=== PATIENT | female | born 1970 | race Caucasian/White ===

== ENCOUNTER 2023-05-15 18:39 | Emergency (ER) | payer OTHER, SELFPAY ==
[2023-05-15 18:40] VITALS: BP 155/91; PULSE 91; RESP 16; TEMP 36.3; BMI 36.8
[2023-05-15 18:43] VITALS: BP 155/91; PULSE 91; RESP 16; TEMP 36.3
[2023-05-15 19:18] VITALS: PULSE 69; RESP 17; O2SAT 98
--- NOTE | 2023-05-15 19:20 | RAD_ITS ---
STUDY: X-RAY - LEFT ELBOW REASON FOR EXAM: Female, 52 years old. fall TECHNIQUE: 3 view(s) of the elbow. COMPARISON: None. FINDINGS: Acute nondisplaced fracture of the radial neck. Normal radiocapitellar and ulnotrochlear articulations. The soft tissue structures are unremarkable. RAD/Elbow min 3 Views IMPRESSION: Acute nondisplaced radial neck fracture. Electronically Signed: Michel Rausch MD at 19:37 EST ,
--- OUTSIDE RECORDS SUMMARY | 2023-05-15 19:34 | XMS RPT_ITS | CCD ---
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 30 tablet 0 03/31/2022 04/08/2022 Discontinued Problems Active Problems Problem Classification Problem Date Documented Da te Episodic/Chronic Menopausal disorders (1 source) Menopausal flushing; Translations: [Menopausal and female climacteric states] Chronic Mood disorders (4 sources) Chronic depression; Translations: [Chronic depression] Onset: 07-07-2022 Chronic Other nutritional; endocrine; and metabolic disorders (1 source) Obesity; Translations: [Obesity, unspecified] Chronic Other nutritional; endocrine; and metabolic disorders (1 source) Obesity, unspecified; Translations: [Class 1 obesity without serious comorbidity with body mass index (BMI) of 34.0 to 34.9 in adult, unspecified obesity type] Onset: 07-07-2022 Chronic Other nutritional; endocrine; and metabolic disorders (1 source) Body mass index (BMI) 34.0-34.9, adult; Translations: [Class 1 obesity without serious comorbidity with body mass index (BMI) of 34.0 to 34.9 in adult, unspecified obesity type] Onset: 07-07-2022 Chronic Other screening for suspected conditions (not mental disorders or infectious disease) (3 sources) Breast finding ; Translations: [Inconclusive mammogram] Episodic Past or Other Problems Problem Classification Problem Date Documented Date Episodic/Chronic Allergic reactions (5 sources) Solar degeneration; Translations: [Other skin changes due to chronic exposure to nonionizing radiation] Onset: 12-19-2012 12-19-2012 Episodic Other and unspecified benign neoplasm (5 sources) Dermatofibroma of left lower limb; Translations: [Other benign neoplasm of skin of left lower limb, including hip] Onset: 12-19-2012 12-19-2012 Episodic Other and unspecified benign neoplasm (5 sources) Lipoma of shoulder; Translations: [Benign lipomatous neoplasm of skin and subcutaneous tissue of unspecified limb] Onset: 12-19-2012 12-19-2012 Episodic Other skin disorders (5 sources) Actinic keratosis; Translations: [Actinic keratosis] Onset: 12-19-2012 12-19-2012 Episodic Other skin disorders (5 sources) Solar lentigo; Translations: [Other melanin hyperpigmentation] Onset: 12-19-2012 12-19-2012 Episodic Other skin disorders (5 sources) Seborrheic keratosis; Translations: [Other seborrheic keratosis] Onset: 02-04-2013 02-04-2013 Episodic Viral infection (5 sources) Verruca vulgaris; Translations: [Viral wart, unspecified] Onset: 10-10-2012 10-10-2012 Episodic Results Test Name Value Interpretation Reference Range Facil ity Vital Signs Date Time Vital Sign Value Performing Clinician Warren valenzuela 07-07-2022 15:58-0500 Body weight 102.51 kg Sofya Cordero APRN.CNP Work Phone: [facility] 07-07-2022 15:58-0500 Diastolic blood pressure 84 mm[Hg] Sofya Cordero APRN.CNP Work Phone: [facility] 07-07-2022 15:58-0500 Systolic blood pressure 144 mm[Hg] Sofya Cordero APRN.CNP Work Phone: [facility] 04-08-2022 15:58-0500 Body height 172.7 cm Sofya Cordero APRN.CNP Work Phone: [facility] 04-08-2022 15:58-0500 Body weight 104.33 kg Sofya Cordero APRN.TIFFANY Work Phone: [facility] 04-08-2022 15:58-0500 Diastolic blood pressure 84 mm[Hg] Sofya Cordero APRN.TIFFANY Work Phone: [facility] 04-08-2022 15:58-0500 Systolic blood pressure 144 mm[Hg] Sofya Cordero APRN.CAMPUS RECRUITING COORDINATOR Work Phone: [facility] Encounters Encounter Date Encounter Type Care Provider Facility Start: 02-25-2023 Refill Sofya PANDEY RN.CAMPUS RECRUITING COORDINATOR Work Phone: OB/Gynecology Procedures Date Procedure Procedure Detail Performing Clinician Start: 01-02-2022 Radex spine cervical 4 or 5 views [facility] Provider Start: 12-05-2020 Mammography [facility]r [facility] Work Phone: Start: 01-23-2010 Lipid 1996 panel - S brandy or Plasma Sofya Cordero APRN.CAMPUS RECRUITING COORDINATOR Work Phone: Plan of Treatment Date Care Activity Detail Author Start: 12-05-2025 HPV TESTING HPV TESTING [facility] Start: 12-05-2025 PAP TESTING PAP TESTING [facility] Start: 01-02-2023 Influenza vaccination Influenza Vaccine (#1) [facility] Start: 05-04-2022 DEPRESSION ASSESSMENT DEPRESSION ASSESSMENT [facility] Start: 01-02-2022 Influenza vaccination INFLUENZA (#1) [facility] Start: 12-05-2021 Mammography [facility] Start: 05-04-2021 DEPRESSION ASSESSMENT DEPRESSION ASSESSMENT [facility] Start: 2018 SHINGRIX VACCINE (1 of 2) SHINGRIX VACCINE (1 of 2) [facility] Start: 01-23-2015 Lipid 1996 panel - Serum or Plasma Lipid Screening [facility] Start: 01-23-2015 LIPID SCREEN LIPID SCREEN [facility] Start: 2013 COLOGUARD (FIT-DNA) COLOGUARD (FIT-DNA) [facility] Start: 2013 Colonoscopy COLONOSCOPY [facility] Start: 2013 COLORECTAL CANCER SCREENING COLORECTAL CANCER SCREENING [facility] Start: [address] COLONOGRAPHY [facility] Start: 2013 DIABETES SCREEN DIABETES SCREEN [facility] Start: 2013 Diabetes Screening Diabetes Screening [facility] Start: 2013 FECAL OCCULT BLOOD FECAL OCCULT BLOOD [facility] Start: 2013 SIGMOIDOSCOPY SIGMOIDOSCOPY [facility] Start: 01-26-2004 Urine microalbumin profile DTaP,Tdap,Td Vaccine (1 - Tdap) [facility] Start: 07-07-1987 Urine microalbumin profile DTAP,TDAP,TD (1 - Tdap) [facility] Start: 1986 HEPATITIS C SCREENING HEPATITIS C SCREENING [facility] Start: 1986 HIV SCREENING HIV SCREENING [facility] Start: 1980 Adult depression screening assessment DEPRESSION SCREENING [facility] Start: 01-06-1969 COVID-19 VACCINE (#1) COVID-19 VACCINE (#1) [facility] Start: 1968 HEPATITIS B (1 of 3 - 3-dose series) HEPATITIS B (1 of 3 - 3-dose series) [facility] Start: 1968 Hepatitis B Vaccine (1 of 3 - 3-dose series) Hepatitis B Vaccine (1 of 3 - 3-dose series) [facility] COLOGUARD COLOGUARD Lab Ro utine Screen for colon cancer Ordered: 04/08/2022 [facility] Work Phone: Immunizations Immunization Date Immunization Notes Care Provider Brigida oliveira 03-06-2018 influenza, injectabl e, quadrivalent, contains preservative Xr Mob Work Phone: [facility] 03-06-2018 influenza virus vaccine, unspecified formulation Sofya Cordero APRN.CAMPUS RECRUITING COORDINATOR Work Phone: [facility] 02-23-2016 influenza, injectabl e, quadrivalent, contains preservative [facility]r [facility] Work Phone: [facility] 03-17-2015 influenza, injectabl e, quadrivalent, contains preservative [facility] Work Phone: [facility] 02-22-2014 influenza, live, intranasal, quadrivalent [facility] Work Phone: [facility] 02-21-2012 influenza virus vaccine, unspecified formulation [facility] Work Phone: [facility] Work Phone: 02-20-2011 influenza virus vaccine, unspecified formulation [facility] Work Phone: [facility] 01-23-2010 influenza virus vaccine, live, attenuated, for intranasal use [facility] Work Phone: [facility] Work Phone: 02-26-2009 influenza virus vaccine, live, attenuated, for intranasal use [facility] [employer] Work Phone: [facility] Work Phone: 03-01-2008 influenza virus vaccine, live, attenuated, for intranasal use [facility] Work Phone: [facility] Work Phone: Payers Date Payer Category Payer Unknown [id number] 2018 Unknown [id number] Social History Date Type Detail Facility Start: 10-30-2015 Tobacco smoking stat [facility] Never smoked tobacco [facility] Work Phone: Start: 10-30-2015 Tobacco use and exposure Smokeless tobacco non-user [facility] Work Phone: Start: 03-27-2021 End: 09-21-2022 Alcohol intake Current drinker of alcohol (finding) [facility] Start: 1970 Sex Assigned At Not on file [facility] Start: 05-30-2022 End: 09-21-2022 History of Social function [facility] Start: 05-30-2022 End: 09-21-2022 Tobacco use panel [facility] National Score (1-100), lower number is lower risk 63 [facility] Clinical Notes 01-02-2022 to 02-25-2023 Telephone Encounter - Patito Weinstein RN - 02/25/2023 12:49 PM Tramaine Cordero APRN.CAMPUS RECRUITING COORDINATOR - 07/07/2022 3:53 PM Dean Cordero APRN.CAMPUS RECRUITING COORDINATOR - 04/08/2022 3:54 PM EST Note Date & Type Note Facility 02-25-2023 Miscellaneous Notes Patient calling in asking for refill of Effexor. Due for annual in April. Scheduled for June. COIP documented in this encounter [facility] 07-07-2022 Note HNO ID: [id number] Author: Sofya Cordero APRN.CAMPUS RECRUITING COORDINATOR Service: ? Author Type: Nurse Practitioner Type: Progress Notes Filed: 07/07/2022 4:26 PM Note Text: Akua Blank is a 52 year old female who presents for problem visit depression follow-up HPI: Is feeling better. Has weaned completely off citalopram and is taking venlafaxine daily. Irritability and energy has improved. Started feeling better and stopped crying as soon as she completely weaned off of citalopram. Frustrated with weight gain since COVID and since she started citalopram, Has had 45 lb weight increase since 2019. OB History T0 L4 SAB0 IAB0 Ectopic0 Multiple0 Live Births0 Hospice Nurse Practitioner History LMP: 06/18/2022 (Approximate), Having periods Age at Menarche: Age at First : Age at Menopause: Hospice Nurse Practitioner History Comments: Sexual Activity: Yes; Male Contraception: Vasectomy PAST MEDICAL HISTORY Diagnosis Date Depression NEGATIVE MEDICAL HISTORY PAST SURGICAL HISTORY Procedure Laterality Date PAST SURGICAL HISTORY OF polyp from throat TONSILLECTOMY PRIMARY/SECONDARY Tonsillectomy FAMILY HISTORY Problem Relation Age of Onset Psychiatry Mother depression Arthritis Mother Hypertension Father No Known Problems Sister Intellectual Disability Brother Intellectual Disability Brother No Known Problems Brother No Known Problems Brother Heart Maternal Grandfather Cancer Paternal Grandfather pancreatic No Known Problems Daughter Diabetes Daughter Type 1 No Known Problems Son No Known Problems Son Social History Tobacco Use Smoking status: Never Smokeless tobacco: Never Vaping Use Vaping Use: Never used Substance Use Topics Alcohol use: Yes Comment: Rarely Drug use: No Current Outpatient Medications Medication Sig venlafaxine ER (EFFEXOR XR) 37.5 mg 24 hr capsule Take 1 capsule by mouth once daily. No current facility-administered medications for this visit. Allergies As of Date: 07/07/2022 (No Known Allergies) Fully Assessed 07/07/2022 REVIEW OF SYSTEMS Allergies and current medication updated:Yes EXAM: BP 144/84 Wt 226 lb (102.5kg) LMP 06/18/2022 GENERAL: pleasant, female in no apparent distress CHEST: Normal inspiratory effort NEURO: alert and oriented x3,exam grossly non-focal ASSESSMENT/PLAN: 1. Chronic depression - ICD9: 311, ICD10: F32.A (primary diagnosis) Doing well, mood has stabilized - VENLAFAXINE ER 37.5 MG CAPSULE,EXTENDED RELEASE 24 HR 2. Class 1 obesity without serious comorbidity with body mass index (BMI) of 34.0 to 34.9 in adult, unspecified obesity type - ICD9: 278.00, V85.34, ICD10: E66.9, Z68.34 - discussed antidepressants and weight gain. - Given questionnaire to complete if she decides to make appt for weight management. Follow-up as needed. Sofya Cordero APRN.CAMPUS RECRUITING COORDINATOR I spent a total of 20 minutes on the date of the service which included preparing to see the patient, [id number] patient care, completing clinical documentation, obtaining and/or reviewing separately obtained history, performing a medically appropriate examination, counseling and educating the patient/family/caregiver, and ordering medications, tests, or procedures. [facility] 07-07-2022 History of Presen t illness Narrative Akua Blank is a 52 year old female who presents for problem visit depression follow-up HPI: Is feeling better. Has weaned completely off citalopram and is taking venlafaxine daily. Irritability and energy has improved. Started feeling better and stopped crying as soon as she completely weaned off of citalopram. Frustrated with weight gain since COVID and since she started citalopram, Has had 45 lb weight increase since 2019. OB History T0 L4 SAB0 IAB0 Ectopic0 Multiple0 Live Births0 Hospice Nurse Practitioner History LMP: 06/18/2022 (Approximate), Having periods Age at Menarche: Age at First : Age at Menopause: Hospice Nurse Practitioner History Comments: Sexual Activity: Yes; Male Contraception: Vasectomy PAST MEDICAL HISTORY Diagnosis Date Depression NEGATIVE MEDICAL HISTORY PAST SURGICAL HISTORY Procedure Laterality Date PAST SURGICAL HISTORY OF polyp from throat TONSILLECTOMY PRIMARY/SECONDARY <AGE 12 Tonsillectomy FAMILY HISTORY Problem Relation Age of Onset Psychiatry Mother depression Arthritis Mother Hypertension Father No Known Problems Sister Intellectual Disability Brother Intellectual Disability Brother No Known Problems Brother No Known Problems Brother Heart Maternal Grandfather Cancer Paternal Grandfather pancreatic No Known Problems Daughter Diabetes Daughter Type 1 No Known Problems Son No Known Problems Son Social History Tobacco Use Smoking status: Never Smokeless tobacco: Never Vaping Use Vaping Use: Never used Substance Use Topics Alcohol use: Yes Comment: Rarely Drug use: No Current Outpatient Medications Medication Sig venlafaxine ER (EFFEXOR XR) 37.5 mg 24 hr capsule Take 1 capsule by mouth once daily. No current facility-administered medications for this visit. Allergies As of Date: 07/07/2022 (No Known Allergies) Fully Assessed 07/07/2022 REVIEW OF SYSTEMS Allergies and current medication updated:Yes EXAM: BP 144/84 Wt 226 lb (102.5kg) LMP 06/18/2022 GENERAL: pleasant, female in no apparent distress CHEST: Normal inspiratory effort NEURO: alert and oriented x3,exam grossly non-focal ASSESSMENT/PLAN: 1. Chronic depression - ICD9: 311, ICD10: F32.A (primary diagnosis) Doing well, mood has stabilized - VENLAFAXINE ER 37.5 MG CAPSULE,EXTENDED RELEASE 24 HR 2. Class 1 obesity without serious comorbidity with body mass index (BMI) of 34.0 to 34.9 in adult, unspecified obesity type - ICD9: 278.00, V85.34, ICD10: E66.9, Z68.34 - discussed antidepressants and weight gain. - Given questionnaire to complete if she decides to make appt for weight management. Follow-up as needed. Sofya Cordero APRN.CNP I spent a total of 20 minutes on the date of the service which included preparing to see the patient, [id number] patient care, completing clinical documentation, obtaining and/or reviewing separately obtained history, performing a medically appropriate examination, counseling and educating the patient/family/caregiver, and ordering medications, tests, or procedures. documented in this encounter [facility] 04-08-2022 Note HNO ID: [id number] Author: Sofya Cordero APRN.CNP Service: ? Author Type: Nurse Practitioner Type: Progress Notes Filed: 04/08/2022 5:00 PM Note Text: Program Counselor offered: Patient declines. Akua is a 51 year old who presents for an annual gynecologic exam with complaints, mood changes . Irritability, short-fuse, wants to lay on couch after work and everything is overwhelming. Does not feel citalopram for depression is helping anymore but she has no hot flashes. 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 No suicidal or homicidal ideation. Menses: random LMP 12/11/21 Contraception: vasectomy HPV vaccine: N/A Last Pap: 12/05/2020 normal HPV: 12/05/2020 negative History of abnormal pap: No Last mammogram: 2020 normal Sexually active: Yes Pain with intercourse: No Postcoital bleeding: No Hot flashes: No - generally feels hot Night sweats: No Documentation from previous visit of 12/05/2020 was copied and pasted, documentation has been reviewed and edited as necessary for today's visit. OB History T0 L4 SAB0 IAB0 Ectopic0 Multiple0 Live Births0 Hospice Nurse Practitioner History LMP: 12/11/2021, Having periods Age at Menarche: Age at First : Age at Menopause: Hospice Nurse Practitioner History Comments: Sexual Activity: Yes; Male Contraception: Vasectomy PAST MEDICAL HISTORY Diagnosis Date NEGATIVE MEDICAL HISTORY PAST SURGICAL HISTORY Procedure Laterality Date PAST SURGICAL HISTORY OF polyp from throat TONSILLECTOMY PRIMARY/SECONDARY Tonsillectomy FAMILY HISTORY Problem Relation Age of Onset Psychiatry Mother depression Arthritis Mother Hypertension Father No Known Problems Sister Intellectual Disability Brother Intellectual Disability Brother No Known Problems Brother No Known Problems Brother Heart Maternal Grandfather Cancer Paternal Grandfather pancreatic No Known Problems Daughter Diabetes Daughter Type 1 No Known Problems Son No Known Problems Son SOCIAL HISTORY Social History Tobacco Use Smoking status: Never Smokeless tobacco: Never Vaping Use Vaping Use: Never used Substance Use Topics Alcohol use: Yes Comment: Rarely Drug use: No REVIEW OF SYSTEMS Abdomen: No abdominal pain, nausea, vomiting, diarrhea, or constipation. No bloating, early satiety, indigestion, or increased flatulence. Bladder: No dysuria, gross hematuria, urinary frequency, urinary urgency, or incontinence Breast: No breast lumps, nipple d/c, overlying skin changes, redness or skin retraction Allergies and current medication updated:Yes EXAM: BP 144/84 Ht 5' 8 (1.73m) Wt 230 lb (104.3kg) LMP 12/11/2021 BMI 34.98 kg/(m2). GENERAL: pleasant, female in no apparent distress HEENT: Normocephalic, atraumatic, mucus membranes moist, and no lesions NECK: Supple, full range of motion, no adenopathy, and thyroid normal DERMATOLOGY: Normal, without lesions, non-icteric, and non-hirsute BREAST: soft, non-tender, symmetric, no dominant mass, normal nipple-areolar complex, no lymphadenopathy, and no nipple discharge CHEST: Normal inspiratory effort ABDOMEN: soft, non-tender, and no masses PELVIC: external genitalia normal, normal Bartholin's glands, urethra, Marvin's glands, no vulvar lesions, no cervical lesions, physiologic discharge present, normal appearing perineal body and perianal region BIMANUAL: uterus normal size, shape and consistency, no adnexal masses, and non-tender RECTOVAGINAL: deferred. NEURO: alert and oriented x3,exam grossly non-focal EXTREMITIES: normal ASSESSMENT/PLAN: 1) Health maintenance: Pap/HPV up to date. Mammogram ordered Mammogram up to date Nutrition, exercise and routine health maintenance exams reviewed. Calcium/Vitamin D supplementation information provided. Colon cancer screening: Cologuard ordered 2. Chronic depression - ICD9: 311, ICD10: F32.A - increase in depressive symptoms due to situational stress. Does not feel like citalopram is effective anymore and would like to change medications. We will wean off citalopram and start venlafaxine. She will call crisis or go to ER if any SI or HI. follow-up in 3 months. - VENLAFAXINE ER 37.5 MG CAPSULE,EXTENDED RELEASE 24 HR 3) Follow up 3 months, sooner as needed Sofya Cordero APRN.[facility] 04-08-2022 History of Presen t illness Narrative Program Counselor offered: Patient declines. Akua is a 51 year old who presents for an annual gynecologic exam with complaints, mood changes . Irritability, short-fuse, wants to lay on couch after work and everything is overwhelming. Does not feel citalopram for depression is helping anymore but she has no hot flashes. 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 No suicidal or homicidal ideation. Menses: random LMP 12/11/21 Contraception: vasectomy HPV vaccine: N/A Last Pap: 12/05/2020 normal HPV: 12/05/2020 negative History of abnormal pap: No Last mammogram: 2020 normal Sexually active: Yes Pain with intercourse: No Postcoital bleeding: No Hot flashes: No - generally feels hot Night sweats: No Documentation from previous visit of 12/05/2020 was copied and pasted, documentation has been reviewed and edited as necessary for today's visit. OB History T0 L4 SAB0 IAB0 Ectopic0 Multiple0 Live Births0 Hospice Nurse Practitioner History LMP: 12/11/2021, Having periods Age at Menarche: Age at First : Age at Menopause: Hospice Nurse Practitioner History Comments: Sexual Activity: Yes; Male Contraception: Vasectomy PAST MEDICAL HISTORY Diagnosis Date NEGATIVE MEDICAL HISTORY PAST SURGICAL HISTORY Procedure Laterality Date PAST SURGICAL HISTORY OF polyp from throat TONSILLECTOMY PRIMARY/SECONDARY <AGE 12 Tonsillectomy FAMILY HISTORY Problem Relation Age of Onset Psychiatry Mother depression Arthritis Mother Hypertension Father No Known Problems Sister Intellectual Disability Brother Intellectual Disability Brother No Known Problems Brother No Known Problems Brother Heart Maternal Grandfather Cancer Paternal Grandfather pancreatic No Known Problems Daughter Diabetes Daughter Type 1 No Known Problems Son No Known Problems Son SOCIAL HISTORY Social History Tobacco Use Smoking status: Never Smokeless tobacco: Never Vaping Use Vaping Use: Never used Substance Use Topics Alcohol use: Yes Comment: Rarely Drug use: No REVIEW OF SYSTEMS Abdomen: No abdominal pain, nausea, vomiting, diarrhea, or constipation. No bloating, early satiety, indigestion, or increased flatulence. Bladder: No dysuria, gross hematuria, urinary frequency, urinary urgency, or incontinence Breast: No breast lumps, nipple d/c, overlying skin changes, redness or skin retraction Allergies and current medication updated:Yes EXAM: BP 144/84 Ht 5' 8 (1.73m) Wt 230 lb (104.3kg) LMP 12/11/2021 BMI 34.98 kg/(m^2). GENERAL: pleasant, female in no apparent distress HEENT: Normocephalic, atraumatic, mucus membranes moist, and no lesions NECK: Supple, full range of motion, no adenopathy, and thyroid normal DERMATOLOGY: Normal, without lesions, non-icteric, and non-hirsute BREAST: soft, non-tender, symmetric, no dominant mass, normal nipple-areolar complex, no lymphadenopathy, and no nipple discharge CHEST: Normal inspiratory effort ABDOMEN: soft, non-tender, and no masses PELVIC: external genitalia normal, normal Bartholin's glands, urethra, Marvin's glands, no vulvar lesions, no cervical lesions, physiologic discharge present, normal appearing perineal body and perianal region BIMANUAL: uterus normal size, shape and consistency, no adnexal masses, and non-tender RECTOVAGINAL: deferred. NEURO: alert and oriented x3,exam grossly non-focal EXTREMITIES: normal ASSESSMENT/PLAN: 1) Health maintenance: Pap/HPV up to date. Mammogram ordered Mammogram up to date Nutrition, exercise and routine health maintenance exams reviewed. Calcium/Vitamin D supplementation information provided. Colon cancer screening: Cologuard ordered 2. Chronic depression - ICD9: 311, ICD10: F32.A - increase in depressive symptoms due to situational stress. Does not feel like citalopram is effective anymore and would like to change medications. We will wean off citalopram and start venlafaxine. She will call crisis or go to ER if any SI or HI. follow-up in 3 months. - VENLAFAXINE ER 37.5 MG CAPSULE,EXTENDED RELEASE 24 HR 3) Follow up 3 months, sooner as needed Sofya Cordero APRN.TIFFANY documented in this encounter [facility] 03-31-2022 Miscellaneous Notes Patient request for medication is as follows: Requested Prescriptions Pending Prescriptions Disp Refills citalopram (CELEXA) 20 mg tablet 90 tablet 0 Sig: Take 1 tablet by mouth daily. Next annual exam: 04/08/22 Please approve the above prescription(s) to electronically send to pharmacy. Jenny Bell RN documented in this encounter [facility] 01-02-2022 Note HNO ID: [id number] Author: Patito Barraza RT(R) Service: Nuclear Medicine Author Type: Technologist Type: Progress Notes Filed: 01/02/2022 4:20 PM Note Text: Radiology Service Progress Note PATIENT NAME: Akua Blank DATE OF SERVICE: January 02, 2022 TIME: 4:10 PM PATIENT IDENTITY VERIFICATION COMPLETED USING TWO (2) IDENTIFIERS: Name and Date of confirmed by patient verbally. FALL SCREENING: Has the patient had 2 falls in the last year or 1 fall with injury or currently using an Ambulatory Assistive Device (Walker, Cane, Wheelchair, Crutches, etc.)? No PATIENT GENDER DATA: Female. status: : No status: NO. PATIENT RELEVANT IMPLANT DATA REVIEWED: Not Applicable RADIOLOGY DEPARTMENT: General X-ray: Exam(s) Completed: Spine X-Ray(s): Cervical AP / LAT / OBL PERIPHERAL IV DATA: Not applicable SIGNED BY: RT Zonia(R) January 02, 2022 4:10 PM [facility] 01-02-2022 History of Presen t illness Narrative Radiology Service Progress Note PATIENT NAME: Akua Blank DATE OF SERVICE: January 02, 2022 TIME: 4:10 PM PATIENT IDENTITY VERIFICATION COMPLETED USING TWO (2) IDENTIFIERS: Name and Date of confirmed by patient verbally. FALL SCREENING: Has the patient had 2 falls in the last year or 1 fall with injury or currently using an Ambulatory Assistive Device (Walker, Cane, Wheelchair, Crutches, etc.)? No PATIENT GENDER DATA: Female. status: : No status: NO. PATIENT RELEVANT IMPLANT DATA REVIEWED: Not Applicable RADIOLOGY DEPARTMENT: General X-ray: Exam(s) Completed: Spine X-Ray(s): Cervical AP / LAT / OBL PERIPHERAL IV DATA: Not applicable SIGNED BY: RT Zonia(R) January 02, 2022 4:10 PM documented in this encounter [facility] Diagnosis Encounter for gynecological examination (general) (routine) without abnormal findings- Primary Chronic depression Depressive disorder, not elsewhere classified Dense breast tissue Encounter for screening mammogram for malignant neoplasm of breast Other screening mammogram Screen for colon cancer Special screening for malignant neoplasms, colon [facility] Diagnosis Chronic depression- Primary Depressive disorder, not elsewhere classified Class 1 obesity without serious comorbidity with body mass index (BMI) of 34.0 to 34.9 in adult, unspecified obesity type [facility] Diagnosis Chronic depression Depressive disorder, not elsewhere classified [facility]ative)* Diagnostic Procedure Only (Routine) - Authorized Specialty Diagnoses / Procedures Referred By Contac t Referred To Contact [facility] Diagnoses Dense breast tissue Encounter for screening mammogram for malignant neoplasm of breast Procedures JM SCREENING W RONNA SCREENING DIGITAL BREAST TOMOSYNTHESIS BI SCREENING MAMMOGRAPHY BI 2-VIEW BREAST INC Sofya Cespedes APRN.CNP [address] [place] [address] [facility] [address] [place] [address] Referral ID Status Reason Start Date Expiration Date Visits Requested Visits Authorized [id number] Authorized Auto-Generat ed Referral 04/08/2022 05/08/2023 1 1 [facility] Summary Purpose Family History No Family History Records Found Advance Directives No Advanced Directives Records Found Additional Source Comments Source Comments (unrecognize d section and content) In the event this informatio n is protected by the Federal Confidentiality of Alcohol and Drug Abuse Patient Records regulations: The Federal rules restrict any use of the information to criminally investigate or prosecute any alcohol or drug abuse patient.[facility] the event this information is protected by the Federal Confidentiality of Alcohol and Drug Abuse Patient Records regulations: The Federal rules restrict any use of the information to criminally investigate or prosecute any alcohol or drug abuse patient.[facility] the event this information is protected by the Federal Confidentiality of Alcohol and Drug Abuse Patient Records regulations: The Federal rules restrict any use of the information to criminally investigate or prosecute any alcohol or drug abuse patient.[facility] the event this information is protected by the Federal Confidentiality of Alcohol and Drug Abuse Patient Records regulations: The Federal rules restrict any use of the information to criminally investigate or prosecute any alcohol or drug abuse patient.[facility] the event this information is protected by the Federal Confidentiality of Alcohol and Drug Abuse Patient Records regulations: The Federal rules restrict any use of the information to criminally investigate or prosecute any alcohol or drug abuse patient.[facility] Reason for Visit (unrecogniz ed section and content) Reason Comments Follow Up Reason Onset Date Comments Refill Request 02/25/2023 Refill Request 03/17/2023 INFORMATION SOURCE (unrecogn ized section and content) FOR RECORDS PERTAINING TO PATIENTS WHO ARE OR HAVE BEEN ENROLLED IN A CHEMICAL DEPENDENCY/SUBSTANCEABUSE PROGRAM, SOME INFORMATION MAY BE OMITTED. This clinical summary was aggregated from multiple sources. Caution should be exercised in using it in the provision of clinical care. This summary normalizes information from multiple sources, and as a consequence, information in this document may materially change the coding, format and clinical context of patient data. In addition, data may be omitted in some cases. CLINICAL DECISIONS SHOULD BE BASED ON THE PRIMARY CLINICAL RECORDS. [facility] [employer] [facility]. provides no warranty or guarantee of the accuracy or completeness of information in this document.
--- NOTE | 2023-05-15 20:15 | EX.ED.UPPERE ---
HPI History of Present Illness Chief Complaint: Upper Extremity Injury Informant: patient and spouse/S.O. Narrative Narrative: Patient presents with left elbow pain after fall. Patient had a mechanical slip and fall on ice. She fell backwards and caught herself on her left elbow. She is right-hand dominant. She has pain on the lateral aspect of that elbow. Nothing else hurts. She never hit her head. PFSH PFSH Home Medications hydrocodone-acetaminophen 5-325mg 5mg-325mg 1 tab PO Q6H PRN PRN Pain 3 days #10 TABLETS 05/15/23 [Rx Last Taken Unknown] Allergy/AdvReac Type Severity Reaction Status Date / Time No Known Allergies Allergy Verified 05/15/23 18:40 Social History Smoking Status: Never smoker ROS ROS ED Constitutional Constitutional ED: Denies chills or fever(s) Cardiovascular Cardiovascular: Denies chest pain or palpitations Gastrointestinal Gastrointestinal: Denies nausea or vomiting Musculoskeletal Musculoskeletal: Reports other Details: See history of present illness ; Denies back pain, myalgias or neck pain Integumentary Denies Abrasions or rash Neurologic Neurologic: Denies headache(s), paresthesias or weakness Hematologic/Lymphatic Hematologic/Lymphatic: Denies easy bruising Allergic/Immunologic Allergic/Immunologic ED: Denies urticaria EXAM Physical Exam Narrative Exam Narrative: General: Patient is awake alert no acute distress sitting in bed. HEENT: No sign of trauma. Neck is supple Cardiorespiratory shows easy unlabored breathing and normal saturations at 98% on room air showing no hypoxia. Extremities do show tenderness lateral aspect left elbow. Pain limits her range of motion somewhat. But there is no distal numbness or weakness. Distal pulses are normal. Creative Art Director is normal. Const Vital Signs: 05/15/23 18:40 05/15/23 18:43 05/15/23 19:18 Temperature 97.4 F L 97.4 F L Temperature Source Temporal Temporal Pulse Rate 91 91 69 Respiratory Rate 16 16 17 Blood Pressure 155/91 H 155/91 H Blood Pressure Mean 112 112 Pulse Ox 98 Oxygen Delivery Method Room Air MDM MDM MDM Narrative Medical decision making narrative: My independent interpretation of the patient's three-view x-ray of her left elbow does show a radial head fracture with minimal to no displacement. Final reading is similar. I discussed that this is usually treated with sling ice rest pain control and early motion. It will need repeat imaging to make sure it is healing correctly. I will refer her to Dr. Villa who is on for orthopedics. She states she thinks they have an orthopedic surgeon that their family has seen. I explained she can use either source but she should have follow-up. Radiography Diagnostic Testing: Clinical Impression(s) from Imaging Studies Elbow X-Ray 05/15/23 19:20 IMPRESSION: Acute nondisplaced radial neck fracture. Electronically Signed: Michel Rausch MD at 19:37 EST , Discharge Plan Triage Chief Complaint: Upper Extremity Injury ED Provider: Chris Schwartz Dx/Rx/DC Orders Clinical Impression: Fall due to ice or snow, Closed fracture of head of left radius Instructions: ED Radial Head Fracture Prescriptions: New hydrocodone-acetaminophen [hydrocodone-acetaminophen] 5-325 mg tablet 1 tab PO Q6H PRN PRN (Reason: Pain) 3 Days Qty: 10 0RF Primary Care Provider: Care Physician,No Primary Referrals: Eyad Villa MD [Med Staff - Active Staff] - 1 Week Care Physician,No Primary [Primary Care Provider] - Disposition Disposition: Home, Self Care
[2023-05-15] MEDS: HYDROcodone Bitartrate/Apap 5/325 Tablet PO (20:31)
== END 2023-05-15 20:36 | disposition home or self-care (01) ==
PROVIDERS: Emergency Provider Emergency Medicine; Visit Provider Emergency Medicine
DX: S52.122A Displaced fracture of head of left radius, initial encounter for closed fracture (principal); W00.9XXA Unspecified fall due to ice and snow, initial encounter
CPT/HCPCS: 73080; 99282

== ENCOUNTER 2023-08-06 17:00 | Outpatient (RCR) | payer OTHER, SELFPAY ==
--- NOTE | 2023-07-02 11:34 | HP.OTEVAL ---
Patient's Visit Information Visit Information Visit Information: AKUA MERCEDES is a 52 year old F, referred to Occupational Therapy by Dr. Kris Piper DO, with a diagnosis of Lateral epicondylitis, R radial head fx. Date of Evaluation: 06/25/23 Occupational Therapist: Ann Mejia Subjective Subjective: Akua is a 52 year old female referred to outpatient occupational therapy by Dr. Yo 5 weeks and 6 days after fall on ice on 05/15/23. X-rays of L elbow and wrist (06/22) show radial neck fx resulting pain to forearm, distal bicep, wrist, and hand into thumb. prescribed anti-inflammatory 2x/day at this time to assist with pain. has restricted weight to no more than 5# at this time. Pt works in [employer] for [employer] which includes a significant amount of typing. 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 Will test L strength after Dr. reynaga weight restrictions Quick DASH-Disab of Arm,Shoulder& Hand Quick DASH Score: 46.6650 Goals Goal:: Upon weight restriction lift, pt will improve hairspring assembler strength to 25# by discharge. Upon weight restriction lift, pt will demo understanding of strengthening HEP with reported consistency by discharge. Goal:: Pt will improve L elbow ext/flex by 10 degrees without pain by discharge. Pt will improve L wrist ROM by 5 degrees without pain by 4 weeks. Goal:: Pt will report no more than 2/10 pain with strengthening/ROM activity by discharge. Goal:: Pt will score 30 or lower on QuickDASH by discharge. Rehabilitation General Assessment: Based on results of x-ray and pt pain report indicated pt would benefit from outpatient occupational therapy service 1/wk for 6 wks with use of modalities, education of protection strategies, home exercise and strengthening once appropriate for inflammation reduction and participation in preferred activities Rehabilitation Potential: Good Anticipated Interventions Anticipated Interventions: A/AAROM/PROM, Strengthening, Modalities, Education re assistive Equipment, Education re Diagnosis, Education re Self Massage Techniques and Home Program Visit Plan Frequency: 1x/Week Duration: 6 Weeks TEXT: Thank you for the opportunity to evaluate your patient. For Medicare and Medicare HMO plans, please review the plan of care and approve it. It will need to be FAXED BACK to us at [phone] for Medicare purposes. Please let me know if there are questions or concerns regarding this plan of care. Physician Signature: Date:
--- NOTE | 2023-07-02 11:34 | HP.OTEVAL ---
Patient's Visit Information Visit Information Visit Information: AKUA MERCEDES is a 52 year old F, referred to Occupational Therapy by Dr. Kris Piper DO, with a diagnosis of Lateral epicondylitis, R radial head fx. Date of Evaluation: 06/25/23 Occupational Therapist: Ann Mejia Subjective Subjective: Akua is a 52 year old female referred to outpatient occupational therapy by Dr. Yo 5 weeks and 6 days after fall on ice on 05/15/23. X-rays of L elbow and wrist (06/22) show radial neck fx resulting pain to forearm, distal bicep, wrist, and hand into thumb. prescribed anti-inflammatory 2x/day at this time to assist with pain. has restricted weight to no more than 5# at this time. Pt works in [employer] for [employer] which includes a significant amount of typing. 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 Will test L strength after Dr. reynaga weight restrictions Quick DASH-Disab of Arm,Shoulder& Hand Quick DASH Score: 46.6650 Goals Goal:: Upon weight restriction lift, pt will improve tile fitter strength to 25# by discharge. Upon weight restriction lift, pt will demo understanding of strengthening HEP with reported consistency by discharge. Goal:: Pt will improve L elbow ext/flex by 10 degrees without pain by discharge. Pt will improve L wrist ROM by 5 degrees without pain by 4 weeks. Goal:: Pt will report no more than 2/10 pain with strengthening/ROM activity by discharge. Goal:: Pt will score 30 or lower on QuickDASH by discharge. Rehabilitation General Assessment: Based on results of x-ray and pt pain report indicated pt would benefit from outpatient occupational therapy service 1/wk for 6 wks with use of modalities, education of protection strategies, home exercise and strengthening once appropriate for inflammation reduction and participation in preferred activities Rehabilitation Potential: Good Anticipated Interventions Anticipated Interventions: A/AAROM/PROM, Strengthening, Modalities, Education re assistive Equipment, Education re Diagnosis, Education re Self Massage Techniques and Home Program Visit Plan Frequency: 1x/Week Duration: 6 Weeks TEXT: Thank you for the opportunity to evaluate your patient. For Medicare and Medicare HMO plans, please review the plan of care and approve it. It will need to be FAXED BACK to us at [phone] for Medicare purposes. Please let me know if there are questions or concerns regarding this plan of care. Physician Signature: Date:
--- NOTE | 2023-08-06 18:05 | HP.OTREVAL ---
Re-Evaluation Intro: Dr. Kris Piper, DO, It has been my pleasure to treat J LUIS MERCEDES over the last 6 visits for Lateral epicondylitis, R radial head fx. Please see the progress note below for an update on the occupational therapy plan of care! Subjective Subjective: pt is 11 weeks 6 days states she is feeling fine no new concerns at this time. pt states she would like to continue working with OT services in order to continue to gain strength and ROM. Pt does have doctor appointment coming up per pt in x2 weeks. ed pt on waiting until after appointment then coming back in and scheduling a few additional visits for progression Objective Objective/Function: elbow extension pre heat 168 elbow extension post heat 170 Plan Plan Frequency: 1x/Week Duration: 3 Weeks Visits in this POC: 1x/wk for 6 weeks Plan: ROM light strengthening Goals Goals Patient Goals: Regain Mobility, Decrease Pain, Use Hand/Wrist/Arm Normally Again, Increase ROM, Be More Independent in ADLS and Resume Former Household Responsibilities (Cooking,Cleaning,Yard, etc.) Goal:: Upon weight restriction lift, pt will improve play back operator strength to 25# by discharge. able to increase light strengthening to 3 pound wrist flex and extension goal ongoing Upon weight restriction lift, pt will demo understanding of strengthening HEP with reported consistency by discharge. currently has 10 pound weight resitriction Goal:: Pt will improve L elbow ext/flex by 10 degrees without pain by discharge. pt elbow extension now 170 after heat and stretch goal ongoing Pt will improve L wrist ROM by 5 degrees without pain by 4 weeks. goal ongoing Goal:: Pt will report no more than 2/10 pain with strengthening/ROM activity by discharge. reports no pain Goal:: Pt will score 30 or lower on QuickDASH by discharge. quick dash score this date 22.72 improved by 24 points Anticipated Interventions Anticipated Interventions Anticipated Interventions: A/AAROM/PROM, Strengthening, Modalities, Education re assistive Equipment, Education re Diagnosis, Education re Self Massage Techniques and Home Program Re-Evaluation Ending Re-evaluation ending: Please do not hesitate to contact me at [phone] by phone or if you have questions or concerns regarding this new plan of care! Sincerely, Argenis Waite
--- NOTE | 2023-11-27 09:17 | HP.OT.NRP ---
Patient Information Patient Information: J LUIS MERCEDES was seen in my office for initial evaluation on 06/25/23. The following Plan of Care was established for this patient: POC Established Initial Frequency: 1x/Week Initial Duration: 3 Weeks Plan: ROM light strengthening Anticipated Interventions Anticipated Interventions: A/AAROM/PROM, Strengthening, Modalities, Education re assistive Equipment, Education re Diagnosis, Education re Self Massage Techniques and Home Program Last Seen Last Seen: This patient was last seen in our office 08/06/23. Pertinent comments regarding their Occupational therapy will appear below: pt was last seen 08/06/23 and at this time no further apts scheduled and due to time lapse in services pt is d/c at this time. At this point I will be discontinuing this patient from occupational therapy. I would be happy to see this patient again in the future if found appropriate by the physician. Thank you! Monica Hawthorne, OTR/L, CHT
== END 2023-08-06 19:00 | disposition home or self-care (01) ==
LOC: OT 17:00
PROVIDERS: Referring Provider Orthopaedic Surgery; Visit Provider Orthopaedic Surgery
DX: S52.132D Displaced fracture of neck of left radius, subsequent encounter for closed fracture with routine healing (principal)
CPT/HCPCS: 97110; 97140; 97166